=== PATIENT | male | born 1965 | race Caucasian/White ===

== ENCOUNTER 2020-02-06 21:30 | Emergency (ER) | payer SELFPAY ==
--- NOTE | 2020-02-06 23:46 | ER ---
Nurse's Notes [facility] Name: Alexandro Hernandez Age: 54 yrs Sex: Male : 1965 Arrival Date: 02/06/2020 Time: 21:33 Bed 14 Private MD: Diagnosis: Open fracture right wrist - comminuted distal radius fracture and ulnar styloid fracture Presentation: 02/05 21:40 Chief complaint: Patient states: "I slipped on a mat in my restroom and bashed my right jd3 hand into the toilet". Coronavirus screen: At this time, the client does not indicate any symptoms associated with coronavirus-19. Ebola Screen: Patient negative for fever greater than or equal to 101.5 degrees Fahrenheit, and additional compatible Ebola Virus Disease symptoms. Complicating Factors: There are no complicating factors for this patient. Initial Sepsis Screen: Does the patient meet any 2 criteria? No. Patient's initial sepsis screen is negative. Does the patient have a suspected source of infection? No. Patient's initial sepsis screen is negative. Risk Assessment: Do you want to hurt yourself or someone else? Patient reports no desire to harm self or others. Onset of symptoms was February 06, 2020. 21:40 Method Of Arrival: Ambulatory jd3 21:40 Acuity: STEPAN 3 jd3 Historical: - Allergies: 21:41 No Known Allergies; jd3 - Home Meds: 21:41 None [Active]; jd3 - PMHx: 21:41 None; jd3 - PSHx: 21:41 None; jd3 - Immunization history:: Adult Immunizations up to date, Last tetanus immunization: about 6-7 years ago.. - Social history:: Smoking status: Patient reports the use of cigarette tobacco products, smokes one pack cigarettes per day. - Family history:: not pertinent. - Hospitalizations: : No recent hospitalization is reported. Screenin:53 Abuse screen: Denies threats or abuse. Denies injuries from another. Nutritional ca1 screening: No deficits noted. Tuberculosis screening: No symptoms or risk factors identified. Fall Risk Fall in past 12 months (25 points). Assessment: 21:51 General: Appears in no apparent distress. comfortable, Behavior is calm, cooperative, ca1 appropriate for age. Pain: Complains of pain in right wrist Pain currently is 7 out of 10 on a pain scale. Neuro: Level of Consciousness is awake, alert, obeys commands. Derm: Skin is intact, is healthy with good turgor, Skin is pink, warm \\T\\ dry. Musculoskeletal: Circulation, motion, and sensation intact. Capillary refill < 3 seconds, Range of motion: limited in right wrist Swelling present in right wrist. Injury Description: Laceration sustained to right wrist is clean, 0.5 to 2.5 cm long, bleeding moderately, was sustained less than 30 minutes ago. is bleeding a small amount. 23:27 Reassessment: MD at bedside talking to the ptient. fu Vital Signs: 21:42 BP 136 / 84; Pulse 88; Resp 17 A; Temp 98.4(O); Pulse Ox 100% on R/A; Weight 129.27 kg jd3 (R); Height 6 ft. 0 in. (182.88 cm) (R); Pain 6/10; 23:15 BP 154 / 92; Pulse 81; Resp 18; Pulse Ox 98% on R/A; fu 21:42 Body Mass Index 38.65 (129.27 kg, 182.88 cm) jd3 ED Course: 21:33 Patient arrived in ED. ag5 21:41 Triage completed. jd3 21:44 Arm band placed on. jd3 21:46 Iris Mauro, RN is Primary Nurse. ca1 21:47 Alejandro Parikh MD is Attending Physician. rn 21:53 Patient has correct armband on for positive identification. Bed in low position. Call ca1 light in reach. Side rails up X 1. Pulse ox on. NIBP on. Warm blanket given. 22:50 XRAY Wrist RIGHT 3 view In Process Unspecified. EDMS 23:51 Orthoglass splint: Sugar tong splint applied on right arm. dh4 02/06 00:00 No provider procedures requiring assistance completed. Patient did not have IV access fu during this emergency room visit. Administered Medications: 02/05 23:56 Drug: KeFLEX 500 mg Route: PO; fu 02/06 00:00 Follow up: Response: Medication administered at discharge. fu Outcome: 00:01 AMA fu 00:01 Condition: stable 00:01 Discharge instructions given to patient, Instructed on discharge instructions, Demonstrated understanding of instructions, Prescriptions given X 2. 00:02 Patient left the ED. fu Signatures: Dispatcher [employer] EDMS Parikh, Alejandro, MD MD rn Richardson, Brandon, RN RN jd3 Kobe Spears RN RN fu Acob, Cheryl, RN RN [facility] Byron Shannon [facility] Justyn Cavazos [facility] Corrections: (The following items were deleted from the chart) 02/05 21:45 21:42 Pulse 88bpm; Resp 17bpm; Assisted; Pulse Ox 100% RA; Temp 98.4F Oral; 129.27 kg jd3 Reported; Height 6 ft. 0 in. Reported; BMI: 38.6; Pain 09/16; jd3 02/06 00:02 00:01 Discharged to home ambulatory, fu fu
--- NOTE | 2020-02-06 23:46 | EDPHYS ---
Physician Documentation [facility] Name: Alexandro Hernandez Age: 54 yrs Sex: Male : 1965 Arrival Date: 02/06/2020 Time: 21:33 Bed 14 Private MD: ED Physician Alejandro Parikh HPI: 02/05 21:51 This 54 yrs old Male presents to ER via Ambulatory with complaints of Laceration To Arm.rn 21:51 The patient has a laceration related to: falling occurred at home, and there are no rn complicating factors. Onset: The symptoms/episode began/occurred just prior to arrival. The patient has not experienced similar symptoms in the past. Reports accidental fall in bathroom, thinks hit wrist on toilet, no head injury, no LOC, remembers all events. Only wrist pain. . Historical: - Allergies: 21:41 No Known Allergies; jd3 - Home Meds: 21:41 None [Active]; jd3 - PMHx: 21:41 None; jd3 - PSHx: 21:41 None; jd3 - Immunization history:: Adult Immunizations up to date, Last tetanus immunization: about 6-7 years ago.. - Social history:: Smoking status: Patient reports the use of cigarette tobacco products, smokes one pack cigarettes per day. - Family history:: not pertinent. - Hospitalizations: : No recent hospitalization is reported. ROS: 21:51 Neck: Negative for injury, pain, and swelling, Cardiovascular: Negative for chest pain, rn palpitations, and edema, Respiratory: Negative for shortness of breath, cough, wheezing, and pleuritic chest pain, Abdomen/GI: Negative for abdominal pain, nausea, vomiting, diarrhea, and constipation, Back: Negative for injury and pain, MS/Extremity: + pain and injury to right wrist Skin: + small punctate wound volar right wrist anterior to distal ulna. Neuro: Negative for headache, weakness, numbness, tingling, and seizure. Exam: 21:51 Constitutional: This is a well developed, well nourished patient who is awake, alert, rn and in no acute distress. Head/Face: Normocephalic, atraumatic. MS/ Extremity: Pulses equal, no cyanosis. + mild tenderness distal right ulna. No gross deformity. + chronic contractures right lateral hand/fingers. Neuro: Awake and alert, GCS 15, oriented to person, place, time, and situation. Vital Signs: 21:42 BP 136 / 84; Pulse 88; Resp 17 A; Temp 98.4(O); Pulse Ox 100% on R/A; Weight 129.27 kg jd3 (R); Height 6 ft. 0 in. (182.88 cm) (R); Pain 6/10; 23:15 BP 154 / 92; Pulse 81; Resp 18; Pulse Ox 98% on R/A; fu 21:42 Body Mass Index 38.65 (129.27 kg, 182.88 cm) jd3 MDM: 21:47 Patient medically screened. rn 23:04 ED course: Consulted with Dr. Gongora, states open fracture, needs to be "sent out". . rn 23:41 Differential diagnosis: open fracture distal radius and/or ulna. Data reviewed: vital rn signs, nurses notes, radiologic studies, plain films, and as a result, I will admit patient. Counseling: I had a detailed discussion with the patient and/or guardian regarding: the historical points, exam findings, and any diagnostic results supporting the discharge/admit diagnosis, radiology results, the need for further work-up and treatment in the hospital, the need to transfer to another facility. Refusal of service: The patient/guardian displays adequate decision making capability and despite a detailed discussion of alternatives, benefits, risks, and consequences refuses: Admission to the hospital for further work-up and treatment, transfer. ED course: Pt notified has open fracture of distal radius and ulna, and need for transfer given Dr. Gongora requesting transfer for open fracture. Pt refuses to be transferred, understands risks of leaving AMA and infection, reports can't do that right now, has to talk to his aunt who knows orthopedists and wants to go home, plans on seeing ortho in AM. Talked to him twice about needing transfer and surgical washout and fixation, still refuses. Signs out AMA.. 02/05 21:51 Order name: XRAY Wrist RIGHT 3 view rn 02/05 23:44 Order name: Splint - Sugar Tong - Forearm; Complete Time: 23:52 rn Administered Medications: 23:56 Drug: KeFLEX 500 mg Route: PO; fu 02/06 00:00 Follow up: Response: Medication administered at discharge. fu Disposition: 02/06/20 23:45 Patient has left against medical advice. Impression: Open fracture right wrist - comminuted distal radius fracture and ulnar styloid fracture. - Patients states they are going to Home. - Condition is Stable. - Discharge Instructions: Wrist Fracture Treated With Immobilization. - Prescriptions for Keflex 500 mg Oral Capsule - take 1 capsule by ORAL route every 12 hours for 10 days; 20 capsule. Tylenol- Codeine #3 300-30 mg Oral Tablet - take 1 tablet by ORAL route every 6 hours As needed; 20 tablet. Follow up: Private Physician; When: Upon discharge from the Emergency Department; Reason: Recheck today's complaints, Continuance of care, Re-evaluation by your physician. - Problem is new. - Symptoms have improved. Signatures: Dispatcher [employer] EDMS Alejandro Parikh MD MD rn Davies, Jonathon, RN RN jd3 Kobe Spears RN RN fu Corrections: (The following items were deleted from the chart) 00:02 02/05 23:45 02/06/2020 23:45 Patients has left against medical advice. Impression: Open fu fracture right wrist - comminuted distal radius fracture and ulnar styloid fracture. Patient states they are going to Home. Condition is Stable. Follow up: Private Physician; When: Upon discharge from the Emergency Department; Reason: Recheck today's complaints, Continuance of care, Re-evaluation by your physician. Problem is new. Symptoms have improved. rn
[2020-02-07] MEDS ORDERED: CEPHALEXIN 250 MG CAP ONE (00:08)
[2020-02-07 01:09] VITALS: TEMP 98.4
[2020-02-07 01:11] VITALS: BP 154/92; O2SAT 98
--- NOTE | 2020-02-07 19:32 | RAD REPORT ---
EXAM DESCRIPTION: RAD - Wrist Right 3 View - 02/06/2020 10:47 pm CLINICAL HISTORY: 54 years Male, traum right wrist, ulnar pain;Pain Wrist Right 3 View COMPARISON: None. FINDINGS/IMPRESSION: Impacted fracture of the distal radius. Minimally displaced fracture of the ulnar styloid. Mild widening of the scapholunate interval measuring 3.8 mm. No dislocation. Soft tissue swelling. Electronically signed by: Jeff Smith DO 02/06/2020 10:54 PM CDT Due to temporary technical issues with the PACS/Fluency reporting system, reports are being signed by the in house radiologists without review as a courtesy to insure prompt reporting. The interpreting radiologist is fully responsible for the content of the report.
== END 2020-02-07 00:02 | disposition left against medical advice (07) ==
LOC: ER 21:30
PROC: 2W3CX1Z Immobilization of Right Lower Arm using Splint (ICD-10-PCS; principal; 2020-02-07)
DX: S52.611B Displaced fracture of right ulna styloid process, initial encounter for open fracture type I or II (principal); W19.XXXA Unspecified fall, initial encounter; Y93.9 Activity, unspecified; Y92.002 Bathroom of unspecified non-institutional (private) residence as the place of occurrence of the external cause; F17.210 Nicotine dependence, cigarettes, uncomplicated
CPT/HCPCS: 99284

== ENCOUNTER 2021-06-02 08:57 | Emergency (ER) | payer SELFPAY ==
--- OUTSIDE RECORDS SUMMARY | 2021-06-02 09:00 | XMS REPORT | Continuity of Care Document ---
:[address] [facility] t Address [address] [place] [address] Care Team Providers Name Role Phone Baljit Wilkerson DO Attending Clinician Demetrius Murray MD Attending Clinician Demetrius MURRAY Attending Clinician Unavailable Problems This patient has no known problems. Allergies, Adverse Reactions, Alerts Allergy Allergy Status Severity Reaction(s) Onset Inactive Treating Comm ents Source Name Type Date Date Clinician NO KNOWN Drug Active Univers ALLERGIE Class ity of [facility] Social History Social Habit Start Date Stop Date Quantity Comments Source Exposure to Not sure [facility] SARS-CoV-2 [facility] (event) [place] Tobacco use and 2020-04-23 2020-04-23 Never used Universit y of exposure 00:00:00 00:00:00 [facility] Alcohol intake 2020-04-23 2020-04-23 Current drinker Unive rsity of 00:00:00 00:00:00 of alcohol [facility] (finding) [place] Sex Ass[birth year] At [birth year] Universit y of 00:00:00 00:00:00 [facility] Smoking Status Start Date Stop Date Source Current every day smoker 2020-04-23 00:00:00 Uni versity [facility] Medications Ordered Filled Start Stop Current Ordering Indication Dosage Frequency Signature Comments Components Source Medication Medication Date Date Medication? Clinician (SIG) Name Name No known No Univers medications [facility] No known No Univers medications [facility] No known No Univers medications [facility] No known No Univers medications [facility] Vital Signs Vital Name Observation Time Observation Value Comments Source Systolic blood 2020-04-23 15:16:00 175 mm[Hg] Univer sity [facility] Diastolic blood 2020-04-23 15:16:00 96 mm[Hg] Unive [facility] Heart rate 2020-04-23 15:16:00 87 /min [facility] Body weight 2020-04-23 15:16:00 148.961 kg [facility] BMI 2020-04-23 15:16:00 44.54 kg/m2 [facility] Body height 2020-04-23 15:13:00 182.9 cm [facility] Procedures Procedure Date / Time Performed Performing Clinician Sourc e XR WRIST <3 VW RIGHT 2020-04-23 15:40:08 [facility] Encounters Start End Encounter Admission Attending Care Care Encounter Source Date/Time Date/Time Type Type Clinicians Facility Department ID 2020-06-22 2020-06-22 [facility] [id number] Univers 00:00:00 00:00:00 Outreach David PRIMARY [id number] i ty [facility] [id number] [id number] Me dical [address] 2020-04-23 2020-04-23 Hospital [facility] [id number] Univers 09:40:07 23:59:00 Encounter Tim Romo Rah [id number] ity of Surgical [id number] Rene as Specialti [id number] Me dical es [address] [place] 2020-04-23 2020-04-23 [facility] [id number] Univers 10:15:00 10:15:00 TIM mast [facility] 2020-04-23 2020-04-23 Office [facility] [id number] Univers 08:56:37 09:47:02 Visit Tim Romo Rah [id number] it y of Surgical [id number] Rene as Specialti [id number] Me dical es [address] [place] Results Test Description Test Time Test Comments Results Result Sourc e Comments XR WRIST <3 VW 2020-04-23 Healing distal Univer sity of RIGHT 16:32:04 radius [facility] fracture [place]
--- NOTE | 2021-06-02 09:36 | RAD REPORT ---
EXAM DESCRIPTION: CT - Head C Spine Cap Wo Con - 06/02/2021 9:17 am CLINICAL HISTORY: Unresponsive;Pain COMPARISON: No comparisons TECHNIQUE: Axial [address] head images were obtained. Axial [address] cervical spine images were obtain ed with sagittal and coronal reconstruction images reviewed. Axial 5 mm images of the chest, abdomen and pelvis were obtained without IV contrast. Sagittal and coronal reconstruction of the chest, abdo men and pelvis performed. All CT scans are performed using dose optimization technique as appropriate and may include automated exposure control or mA/KV adjustment according to patient size. FINDINGS: No intracranial hemorrhage, mass or edema. No midline shift or abnormal fluid collection. Mastoid air cells and paranasal sinuses are clear. No skull fracture. Moderate atrophy and chronic i schemic changes are present. Ventricles are in proportion to volume loss. CT cervical spine shows normal height and alignment. No fracture or acute finding. C5-6 and C6-7 disc space narrowing seen. Anterior and posterior endplate spurring changes are present. Mild bilateral b frank foraminal encroachment changes are present. No suspicious soft tissue finding. Central canal deta il is inherently limited. Scarring and/ or atelectasis changes are present at the left lung base. No acute lung parenchymal pro cess, pleural effusion or pneumothorax. No mediastinal mass or hematoma seen. Dense coronary artery c alcifications are present. A small amount of pneumomediastinum is present anterior to the tracheal bi furcation and extending inferiorly into the subcarinal region. This does not extend into the upper ab domen. No esophageal wall thickening or mass identified. No focal bronchial defect. Source of the pne umomediastinum is unknown. No chest will mass or abnormal axillary finding. No displaced rib fracture or other significant bony finding. Mild bilateral gynecomastia. Liver shows diffuse fatty infiltration pattern with no focal lesion. No spleen or pancreatic process identified. Well filled gallbladder shows hyperdensity relative to the liver parenchyma. This could b e sludge filling the gallbladder. No biliary tree dilatation. No hydronephrosis or suspicious renal m ass. A 2.5 centimeter round low-density mass posterior upper pole right kidney is almost certainly a cyst. Isodense masses and pyelonephritis cannot be excluded on non IV contrast study. Well filled uri nary bladder shows no suspicious finding. No acute bowel finding is present. There is fluid filling but not distending the lumen of stomach. No appendicitis findings. No active GI process seen. No free air, free fluid or inflammatory stranding in the peritoneal or retroperitoneal spaces. No significant bony finding. IMPRESSION: Advanced age atrophy in chronic white matter changes are present. No acute intracranial finding. Cervical spine degenerative changes are present relatively advanced for the patient's age. No acute f inding. Central canal detail is inherently limited. Patient has a small amount of pneumomediastinum extending from the tracheal bifurcation to near the d iaphragm. No extension into the abdomen, upper mediastinum or neck. No esophageal focal abnormality a nd no bronchial wall rent or tear seen. Source for the pneumomediastinum is unknown. No significant CT Abdomen and Pelvis finding.
[2021-06-02 09:44] LABS: Urine Blood Negative (Negative); Urine Glucose Negative (Negative); Urine Protein 1+ (Negative); Urine Specific Gravity >=1.030 (1.005-1.030)
[2021-06-02 09:45] LABS: Absolute Lymphocytes (CBC) 0.8 K/uL (0.7-4.9); Hematocrit 36.5 % (39.6-49.0); Lymphocytes % 9.9 % (15.3-44.8); MPV 9.6 fL (7.6-11.3); RBC Red Blood Cell Count 3.23 M/uL (4.33-5.43)
[2021-06-02 09:50] LABS: Protime INR 0.91
[2021-06-02 10:08] LABS: ALT/SGPT 79 U/L (12-78); AST/SGOT 137 U/L (15-37); Alkaline Phosphatase 84 U/L (45-117); BUN Blood Urea Nitrogen 41 mg/dL (7-18); Bicarbonate 17 mmol/L (21-32); Bilirubin Direct 0.5 mg/dL (0-0.2); Glucose Level 172 mg/dL (74-106); Potassium 3.1 mmol/L (3.5-5.1); Protein, Total 7.6 g/dL (6.4-8.2); Sodium Level 139 mmol/L (136-145)
[2021-06-02 10:11] LABS: Anisocytosis SLIGHT; Blood Morphology Comment NOTED (NOT SEEN); Macrocytosis 1+; Platelet Estimate DECR
[2021-06-02 10:19] LABS: Barbiturates NEGATIVE (NEGATIVE); Benzodiazepines NEGATIVE (NEGATIVE); Cocaine NEGATIVE (NEGATIVE); METHAMPHETAM NEGATIVE (NEGATIVE); Methadone NEGATIVE (NEGATIVE); Opiates NEGATIVE (NEGATIVE); Phencyclidine NEGATIVE (NEGATIVE); THC Cannibis NEGATIVE (NEGATIVE)
--- NOTE | 2021-06-02 10:54 | ER ---
Nurse's Notes [facility] Name: Alexandro Hernandez Age: 56 yrs Sex: Male : 1965 Arrival Date: 06/02/2021 Time: 09:00 Bed 3 Private MD: Diagnosis: Pneumomediastinum;Altered mental status, unspecified Presentation: 06/02 09:02 Chief complaint: EMS states: per EMS neighbor did a wellness check, pt was found down narayanan unresponsive, unknown down time. unknown cause. Coronavirus screen: At this time, unable to obtain information related to travel outside the [place] Ebola Screen: Patient denies travel to an Ebola-affected area in the 21 days before illness onset. Initial Sepsis Screen: Does the patient meet any 2 criteria? Altered Mental Status. Does the patient have a suspected source of infection? No. Patient's initial sepsis screen is negative. Risk Assessment: Do you want to hurt yourself or someone else? Patient reports no desire to harm self or others. Onset of symptoms was June 02, 2021. 09:02 Method Of Arrival: EMS: [facility] 09:02 Acuity: STEPAN 2 narayanan Triage Assessment: 09:05 General: Appears unkempt, Behavior is unresponsive. Pain: Unable to use pain scale. narayanan Patient is disoriented. Patient is unresponsive. Neuro: Oriented to none Pupils are Pupil Size: left pupils is pin point, right is 2mm round. Historical: - Allergies: 09:05 No Known Allergies; narayanan - PMHx: 09:05 Unable to Obtain; narayanan - PSHx: 09:05 Unable to Obtain; narayanan - Immunization history:: Adult Immunizations unknown. - Social history:: Smoking status: unknown. Screenin:08 Abuse screen: Denies threats or abuse. Denies injuries from another. Nutritional narayanan screening: No deficits noted. Tuberculosis screening: No symptoms or risk factors identified. Fall Risk IV access (20 points). Assessment: 09:00 General: Appears distressed, uncomfortable, unkempt, Behavior is unresponsive. Smells jg9 of urine/feces. Pain: Unable to use pain scale. Patient is unresponsive. 09:00 Neuro: Level of Consciousness is unresponsive, Patient has movement noted to all 4 jg9 extremities but not obeying any commands . Vital Signs: 09:02 BP 109 / 78; Pulse 74; Resp 18; Temp 97.6(T); Pulse Ox 98% on R/A; Weight 104.33 kg; narayanan Height 6 ft. 1 in. (185.42 cm); 09:45 BP 90 / 74; Pulse 110; Resp 21 S; Pulse Ox 99% on R/A; jg9 10:00 BP 100 / 85; Pulse 96; Resp 22 S; Pulse Ox 99% on R/A; jg9 10:30 BP 108 / 84; Pulse 83; Resp 20 S; Pulse Ox 99% on R/A; jg9 11:00 BP 104 / 75; Pulse 82; Resp 24 S; Pulse Ox 100% on R/A; jg9 11:30 BP 96 / 81; Pulse 79; Resp 25 S; Pulse Ox 100% on R/A; jg9 12:03 BP 104 / 82; Pulse 82; Resp 18; Pulse Ox 100% on R/A; narayanan 12:30 BP 101 / 79; Pulse 84; Resp 19 S; Pulse Ox 100% on R/A; jg9 13:00 BP 108 / 78; Pulse 73; Resp 22 S; Pulse Ox 100% on R/A; jg9 13:30 BP 104 / 77; Pulse 68; Resp 19 S; Pulse Ox 100% on R/A; jg9 13:45 BP 99 / 82; Pulse 61; Resp 19 S; Pulse Ox 99% on R/A; jg9 09:02 Body Mass Index 30.34 (104.33 kg, 185.42 cm) narayanan ED Course: 09:00 Patient arrived in ED. em1 09:03 Josh Angulo MD is Attending Physician. kdr 09:05 Triage completed. narayanan 09:05 Arm band placed on. narayanan 09:08 No provider procedures requiring assistance completed. narayanan 09:11 Patient has correct armband on for positive identification. Bed in low position. Side narayanan rails up X 1. 09:17 CT Traumagram (Head C Spine CAP wo con) In Process Unspecified. EDMS 09:43 Acetaminophen Sent. narayanan 09:43 Basic Metabolic Panel Sent. narayanan 09:43 CBC with Diff Sent. narayanan 09:43 ETOH Level Sent. narayanan 09:43 Hepatic Function Sent. narayanan 09:43 PT-INR Sent. narayanan 09:43 Ptt, Activated Sent. narayanan 09:43 Salicylate Sent. narayanan 09:43 Urine Drug Screen Sent. narayanan 09:43 SARS-COV-2 RT PCR (Document "Date of Onset" if Symptomatic) Sent. narayanan 09:43 Inserted saline lock: 20 gauge in left hand, using aseptic technique. Maintain EMS IV. narayanan Dressing intact. Gauge \\T\\ site: 22g rhand. 09:51 Charu Ritchie, RN is Primary Nurse. jg9 10:15 AMMONIA Sent. narayanan 10:53 John Clark MD is Hospitalizing Provider. kdr 11:09 CPK Sent. narayanan 15:00 Patient transferred, IV remains in place. jg9 Administered Medications: 11:34 Drug: Potassium Chloride 20 mEq Route: IV; Rate: calculated rate; Site: left hand; narayanan 12:28 Drug: NS 0.9% 1000 ml Route: IV; Rate: 1 bolus; Site: right hand; narayanan 12:28 Drug: NS 0.9% 1000 ml Route: IV; Rate: 125 ml/hr; Site: left hand; narayanan Outcome: 10:53 Decision to Hospitalize by Provider. kdr 13:39 ER care complete, transfer ordered by . kdr 13:40 Transferred by helicopter to [facility], Transfer form completed. jg9 14:59 Condition: stable jg9 15:00 Patient left the ED. jg9 Signatures: Dispatcher [employer] EDMS Josh Angulo MD MD [facility] Elias, Harshad em1 Charu Ritchie, JOJO URIBE jg9 Au-StagerSmita RN RN Corrections: (The following items were deleted from the chart) 10:00 09:00 Neuro: Level of Consciousness is unresponsive, Oriented to none Tinsmith Helper are patient jg9 not obeying any commads when prompted but is moving upper right and lower extremities freely with no movement noted to left side. . moves right arm, right leg. Gait is unable to assess. Speech unresponsive-incomprehensible when moving or touching patient. Facial symmetry appears normal, Pupils are Pupil Size: left 1mm, right 3mm Babinski is positive no response on right on left jg9
--- NOTE | 2021-06-02 10:54 | EDPHYS ---
Physician Documentation [facility] Name: Alexandro Hernandez Age: 56 yrs Sex: Male : 1965 Arrival Date: 06/02/2021 Time: 09:00 Bed 3 Private MD: ED Physician Josh Angulo HPI: 06/02 09:06 This 56 yrs old Male presents to ER via EMS with complaints of Altered mental status. kdr 09:06 The patient presents with decreased mental status, decreased responsiveness. Onset: The kdr symptoms/episode began/occurred suddenly. Possible causes: CVA or TIA, alcohol, head injury. Current symptoms: In the emergency department the patient's symptoms are unchanged from the initial presentation. Patient's baseline: Unknown. It is unknown whether or not the patient has had similar symptoms in the past. It is unknown whether or not the patient has recently seen a physician. EMS reports that the patient may have not been seen for the last 2 weeks. This morning neighbors went to check on him and when they could not get an EMS and police were called. They found the patient unresponsive and draped over the foot of his bed. He was not positive initially by EMS. They administered Narcan without significant response. On initial presentation the patient is not responding to anything other than painful stimuli.. Historical: - Allergies: 09:05 No Known Allergies; narayanan - PMHx: 09:05 Unable to Obtain; narayanan - PSHx: 09:05 Unable to Obtain; narayanan - Immunization history:: Adult Immunizations unknown. - Social history:: Smoking status: unknown. ROS: 09:06 Constitutional: Unable to obtain secondary to altered mental status kdr 09:06 Unable to obtain ROS due to altered mental status, obtunded state. Exam: 09:06 Constitutional: This is a well developed, well nourished patient who is awake, alert, kdr and in no acute distress. Head/Face: Normocephalic, atraumatic. Except for possible contusion on left occipital/parietal area 09:06 Neck: Trachea midline, no thyromegaly or masses palpated, and no cervical lymphadenopathy. Supple, full range of motion without nuchal rigidity, or vertebral point tenderness. No Meningismus. Chest/axilla: Normal chest wall appearance and motion. Nontender with no deformity. No lesions are appreciated. Cardiovascular: Regular rate and rhythm with a normal S1 and S2. No gallops, murmurs, or rubs. Normal PMI, no JVD. No pulse deficits. Respiratory: Lungs have equal breath sounds bilaterally, clear to auscultation and percussion. No rales, rhonchi or wheezes noted. No increased work of breathing, no retractions or nasal flaring. Abdomen/GI: Soft, non-tender, with normal bowel sounds. No distension or tympany. No guarding or rebound. No evidence of tenderness throughout. Back: No spinal tenderness. No costovertebral tenderness. Full range of motion. Skin: Warm, dry with normal turgor. Normal color with no rashes, no lesions, and no evidence of cellulitis. MS/ Extremity: Pulses equal, no cyanosis. Neurovascular intact. Full, normal range of motion. 09:06 Eyes: Pupils: Bilateral 2 to 3 mm and sluggish, The patient has disconjugate gaze. With the left eye off to the left and upward.. 09:06 Neuro: Patient is poorly her unresponsive at this time. 10:10 ECG was reviewed by the Attending Physician. kdr Vital Signs: 09:02 BP 109 / 78; Pulse 74; Resp 18; Temp 97.6(T); Pulse Ox 98% on R/A; Weight 104.33 kg; narayanan Height 6 ft. 1 in. (185.42 cm); 09:45 BP 90 / 74; Pulse 110; Resp 21 S; Pulse Ox 99% on R/A; jg9 10:00 BP 100 / 85; Pulse 96; Resp 22 S; Pulse Ox 99% on R/A; jg9 10:30 BP 108 / 84; Pulse 83; Resp 20 S; Pulse Ox 99% on R/A; jg9 11:00 BP 104 / 75; Pulse 82; Resp 24 S; Pulse Ox 100% on R/A; jg9 11:30 BP 96 / 81; Pulse 79; Resp 25 S; Pulse Ox 100% on R/A; jg9 12:03 BP 104 / 82; Pulse 82; Resp 18; Pulse Ox 100% on R/A; narayanan 12:30 BP 101 / 79; Pulse 84; Resp 19 S; Pulse Ox 100% on R/A; jg9 13:00 BP 108 / 78; Pulse 73; Resp 22 S; Pulse Ox 100% on R/A; jg9 13:30 BP 104 / 77; Pulse 68; Resp 19 S; Pulse Ox 100% on R/A; jg9 13:45 BP 99 / 82; Pulse 61; Resp 19 S; Pulse Ox 99% on R/A; jg9 09:02 Body Mass Index 30.34 (104.33 kg, 185.42 cm) narayanan MDM: 10:53 Patient medically screened. [facility] 10:53 Data reviewed: vital signs, nurses notes, lab test result(s), radiologic studies. kdr Counseling: I had a detailed discussion with the patient and/or guardian regarding: the historical points, exam findings, and any diagnostic results supporting the discharge/admit diagnosis. 12:27 ED course: Patient with the [place] doctors including Dr. Erazo (CV), Dr. Worthington [facility] (medicine) and Dr. Shah (Supply Officer). 06/02 09:04 Order name: Acetaminophen; Complete Time: 10:33 [facility] 06/02 09:04 Order name: Basic Metabolic Panel; Complete Time: 10:33 [facility] 06/02 09:04 Order name: CBC with Diff; Complete Time: 10:33 [facility] 06/02 09:04 Order name: ETOH Level; Complete Time: 10:33 [facility] 06/02 09:04 Order name: Hepatic Function; Complete Time: 10:33 [facility] 06/02 09:04 Order name: PT-INR; Complete Time: 10:33 [facility] 06/02 09:04 Order name: Ptt, Activated; Complete Time: 10:33 [facility] 06/02 09:04 Order name: Salicylate; Complete Time: 10:52 [facility] 06/02 09:04 Order name: Urine Drug Screen; Complete Time: 10:33 [facility] 06/02 09:33 Order name: SARS-COV-2 RT PCR (Document "Date of Onset" if Symptomatic); Complete Time: em1 10:52 06/02 09:43 Order name: Urine Dipstick-Ancillary; Complete Time: 10:33 EDMD 06/02 10:05 Order name: AMMONIA; Complete Time: 11:57 [facility] 06/02 10:05 Order name: AMMONIA 9 06/02 10:11 Order name: Manual Differential; Complete Time: 10:33 EDMD 06/02 09:04 Order name: EKG; Complete Time: 09:04 [facility] 06/02 09:04 Order name: EKG - Nurse/Tech; Complete Time: 09:32 kdr 06/02 09:04 Order name: IV Saline Lock; Complete Time: 09:42 kdr 06/02 09:04 Order name: Labs collected and sent; Complete Time: 09:43 kdr 06/02 09:04 Order name: Urine Dipstick-Ancillary (obtain specimen); Complete Time: 09:43 kdr 06/02 09:06 Order name: CT Traumagram (Head C Spine CAP wo con); Complete Time: 09:44 kdr 06/02 10:34 Order name: CPK; Complete Time: 12:27 kdr 06/02 12:19 Order name: ABG kdr EC:10 Rate is 87 beats/min. Rhythm is regular, Sinus Rhythm with No ectopy. QRS [place] is kdr Normal. [place] interval is normal. QRS interval is normal. Clinical impression: NSR w/ Non-specific ST/T Changes. Administered Medications: 11:34 Drug: Potassium Chloride 20 mEq Route: IV; Rate: calculated rate; Site: left hand; narayanan 12:28 Drug: NS 0.9% 1000 ml Route: IV; Rate: 1 bolus; Site: right hand; narayanan 12:28 Drug: NS 0.9% 1000 ml Route: IV; Rate: 125 ml/hr; Site: left hand; narayanan Disposition Summary: 06/02/21 13:39 Transfer Ordered Transfer Location: [facility] kdr Reason: Higher level of care kdr Condition: Serious(06/02/21 13:39) kdr Problem: an acute exacerbation(06/02/21 13:39) kdr Symptoms: have improved(06/02/21 13:39) kdr Accepting Physician: Ander(06/02/21 15:00) [email or web address] Diagnosis - Pneumomediastinum kdr - Altered mental status, unspecified(06/02/21 13:39) kdr Forms: - Medication Reconciliation Form kdr - SBAR form kdr Signatures: Dispatcher [employer] EDMS Josh Angulo MD MD kdr Scar Rivera PA PA jmm Gilmore, Jennifer, RN RN jg9 Smita Duran RN RN ha Corrections: (The following items were deleted from the chart) :32 09:04 Suicide Screening ([place]) ordered. kdr iw 12:21 12:01 Brain W/Wo Cont ordered. EDMS EDMS 13:38 10:53 Inpatient Admission kdr kdr 13:38 10:53 John Clark kdr kdr 13:38 10:53 Intensive Care Unit kdr kdr 13:38 10:53 Serious kdr kdr 13:38 10:53 new kdr kdr 13:38 10:53 have improved kdr kdr 13:38 10:53 Standard kdr kdr 13:38 10:53 kdr kdr 13:38 10:53 Altered mental status, unspecified kdr kdr 14:16 12:21 Brain Wo Cont ordered. EDMS EDMS 15:00 13:39 Ander kdr [email or web address]
[2021-06-02] MEDS ORDERED: KCL 20 MEQ/100 mL IVPB 100 ML IV ONE (11:11)
[2021-06-02] MEDS ORDERED: NA CHLORIDE 0.9% 2,000 ML ONE (12:30)
[2021-06-02 12:46] LABS: Arterial Blood Carboxyhemoglob 1.2 % (0-1.5); Blood Gas Oxyhemoglobin 94.7 % (94-97)
[2021-06-02 16:12] VITALS: TEMP 97.6
[2021-06-02 16:24] VITALS: BP 99/82; O2SAT 99
== END 2021-06-02 15:00 | disposition short-term general hospital (02) ==
LOC: ER 08:57
DX: J98.2 Interstitial emphysema (principal); Z20.822 Contact with and (suspected) exposure to COVID-19
CPT/HCPCS: 36415; 70450; 71250; 72125; 80048; 80076; 80307; 80320; 80329; 81003; 82140; 82550; 82805; 85025; 85610; 85730; 96374; 99285; J3480; J7030; U0003